=== PATIENT | male | born 1960 | race Caucasian/White ===

== ENCOUNTER → 2020-05-03 | Outpatient (CLI) | payer OTHER ==
[~2020-05-03] MED LIST: LISINOPRIL10 MG PO; LOPRESSOR 25 MG25 MG PO
== END ==
LOC: KOH-I 05-01 10:00 → CT 05-01 11:00 → KOH-I 10:05
DX: C65.1 Malignant neoplasm of right renal pelvis (principal); R91.8 Other nonspecific abnormal finding of lung field
CPT/HCPCS: 71250

== ENCOUNTER → 2020-08-12 | Outpatient (CLI) | payer OTHER | LOC: CT 09:00 | DX: R91.1 Solitary pulmonary nodule (principal); C65.1 Malignant neoplasm of right renal pelvis | CPT/HCPCS: 71260; Q9963 ==

== ENCOUNTER → 2021-01-28 | Outpatient (CLI) | payer OTHER ==
[2021-01-28 14:35] LABS: HEMOGLOBIN 15.4 gm/dl (14.0-17.5); RED BLOOD COUNT 4.48 M/UL (4.20-5.50); WHITE BLOOD COUNT 3.8 K/UL (4.5-11.0)
== END ==
LOC: CT 13:36
PROVIDERS: Internal Medicine Hematology & Oncology
DX: C34.31 Malignant neoplasm of lower lobe, right bronchus or lung (principal); C65.1 Malignant neoplasm of right renal pelvis; R91.1 Solitary pulmonary nodule
CPT/HCPCS: 36415; 71250; 80053; 83615; 85027

== ENCOUNTER → 2021-03-06 | Outpatient (CLI) | payer OTHER | LOC: KOH-I 12:54 | DX: M47.817 Spondylosis without myelopathy or radiculopathy, lumbosacral region (principal) | CPT/HCPCS: 72110 ==

== ENCOUNTER → 2021-08-04 | Outpatient (CLI) | payer OTHER ==
[2021-08-04 11:53] LABS: HEMOGLOBIN 15.5 gm/dl (14.0-17.5); RED BLOOD COUNT 4.53 M/UL (4.20-5.50); WHITE BLOOD COUNT 5.9 K/UL (4.5-11.0)
== END ==
LOC: CT 11:00
PROVIDERS: Internal Medicine Hematology & Oncology
DX: C65.1 Malignant neoplasm of right renal pelvis (principal); R91.1 Solitary pulmonary nodule
CPT/HCPCS: 36415; 71250; 74150; 80053; 83615; 85025

== ENCOUNTER → 2021-12-09 | Outpatient (CLI) | payer OTHER ==
[2021-12-09 12:35] LABS: HEMOGLOBIN 16.7 gm/dl (14.0-17.5); RED BLOOD COUNT 4.71 M/UL (4.20-5.50); WHITE BLOOD COUNT 5.7 K/UL (4.5-11.0)
== END ==
LOC: CT 12:12
PROVIDERS: Registered Nurse
DX: C65.1 Malignant neoplasm of right renal pelvis (principal); R91.8 Other nonspecific abnormal finding of lung field
CPT/HCPCS: 36415; 71260; 80053; 85025; Q9967